=== PATIENT | female | born 1945 | race Two or more races ===

== ENCOUNTER 2019-03-28 13:03 | Outpatient (CLI) | payer MEDICARE ==
--- NOTE | 2019-03-28 20:30 | Consultation ---
DATE OF CONSULTATION: 03/28/2019 CHIEF COMPLAINT: Referred for screening colonoscopy. PAST MEDICAL HISTORY: History of diverticulosis. PAST SURGICAL HISTORY: None. MEDICATIONS: None. FAMILY HISTORY: No family history of GI malignancy. SOCIAL HISTORY: The patient lives at home with her . Denies any tobacco, alcohol, or drug abuse. ALLERGIES: No known allergies. REVIEW OF SYSTEMS: A 10-point review of systems was performed and pertinent positives in HPI. PHYSICAL EXAMINATION: GENERAL: This is a well-developed female in no acute distress. The patient is afebrile. VITAL SIGNS: Stable. HEENT: Normocephalic and atraumatic. Sclerae anicteric. NECK: Supple. No evidence of obvious lymphadenopathy. CARDIOVASCULAR: Regular rate and rhythm. Plus S1 and S2. No obvious murmur. LUNGS: Clear to auscultation bilaterally. ABDOMEN: Positive bowel sounds. Soft and nontender. No rebound. No guarding. No peritoneal sign. EXTREMITIES: No cyanosis, no clubbing, no edema. ASSESSMENT AND PLAN: The patient is a 74-year-old female with a past medical history of diverticulosis referred to us for screening colonoscopy evaluation. The patient was given prep and instruction for the colonoscopy. The patient to call to schedule for the procedure. Jaleel Gil M.D. DR: Anitha JOB#: [id number] CC:
[2019-03-29] MEDS ORDERED: NO MEDICATION (11:25)
== END 2019-03-28 15:03 | disposition home or self-care (01) ==
LOC: PAN 13:03
DX: K57.90 Diverticulosis of intestine, part unspecified, without perforation or abscess without bleeding (principal)